=== PATIENT | female | born 1980 | race Caucasian/White ===

== ENCOUNTER 2024-06-10 10:28 | Emergency (ER) | payer BC, SELFPAY ==
[2024-06-10 10:30] VITALS: BP 127/95
--- NOTE | 2024-06-10 11:00 | ED.GENMED ---
History of Present Illness
General
Chief Complaint: Abdominal Symptoms
Source: patient
Exam Limitations: none
Time Seen by Provider: 06/10/24 10:48
History of Present Illness
History of Present Illness:
44-year-old female presents with 2 days worth of copious amounts of diarrhea. She notes liquid type stool at least every hour. She notes a bloating type discomfort and crampy type pain but no persistent pain that is localized. She denies fevers
but notes exhaustion and fatigue. No blood in the stool. No urinary symptoms. No known sick contacts. No other complaints at this time. No recent antibiotics
Phy Exam
Physical Exam
Physical Exam:
General: Well-appearing female no acute respiratory distress
HEENT: Normocephalic atraumatic mucosa dry
Heart tachycardic but regular
Lungs: Clear no wheeze
Abdomen is soft hyperactive bowel sounds nontender nondistended
Extremities: No cyanosis
Skin: Warm no rash
Course
Orders/Labs/Results
Orders:
Orders
06/10/24 10:59
0.9% Sodium Chloride 1000 ml [Nss] 1,000 ml IV BOLUS
06/10/24 11:11
Complete Blood Count/With Diff Urgent
Comprehensive Metabolic Panel Urgent
HCG, Serum Qualitative Screen Urgent
Comment: ADD ON
06/10/24 11:27
Add On- LAB Urgent
Tests Added?: qualitative hcg
06/10/24 12:17
Urinalysis Reflex To Culture Urgent
Date Specimen was Collected: 06/10/24
Time Specimen was Collected: 12:15
Urine Microscopic Reflex Cult Urgent
Norovirus by PCR Urgent
IRAIDA Source: Feces/Stool
Specimen Description:
Date Specimen was Collected: 06/10/24
Time Specimen was Collected: 12:15
STOOL [C difficile Antigen & Toxins] Urgent
IRAIDA Source: Feces/Stool
Specimen Description:
Date Specimen was Collected: 06/10/24
Time Specimen was Collected: 12:15
Stool Culture Urgent
IRAIDA Source: Feces/Stool
Specimen Description:
Date Specimen was Collected: 06/10/24
Time Specimen was Collected: 12:15
Urine Culture Urgent
IRAIDA Source: U
Specimen Description:
Date Specimen was Collected: 06/10/24
Time Specimen was Collected: 12:15
Abnormal Lab Results
06/10/24 06/10/24
11:11 12:17
WBC 14.7 H 10^3/uL
(4.8-10.8)
RBC 5.41 H 10^6/uL
(4.20-5.40)
Hct 47.1 H %
(37.0-47.0)
Abs Immat Gran (auto) 0.1 H 10^3/uL
(0-0.05)
Absolute Neuts (auto) 11.1 H 10^3/uL
(1.4-6.5)
Absolute Monos (auto) 0.8 H 10^3/uL
(0.1-0.6)
Neutrophils % 75.7 H %
(42.2-75.2)
Lymphocytes % 16.8 L %
(20.5-51.1)
Carbon Dioxide 21 L mmol/L
(22-30)
Calcium 10.3 H mg/dl
(8.4-10.2)
Urine Ketones 1+ A
(Negative)
Ur Occult Blood Reflex 2+ A
(Negative)
Leukocyte Esterase Rfl 1+ A
(Negative)
Urine Bacteria (Reflex) Few A
(Negative)
Urine Albumin (Reflex) 2+ A
(Neg - Trace)
06/10/24 11:11
06/10/24 11:11
Vital Signs
Initial and Last Documented VS:
Initial Vital Signs
Temp Pulse Resp BP Pulse Ox
97.7 F 118 22 127/95 97
06/10/24 10:30 06/10/24 10:30 06/10/24 10:30 06/10/24 10:30 06/10/24 10:30
Last Documented Vital Signs
Temp Pulse Resp BP Pulse Ox
97.7 F 88 16 118/83 100
06/10/24 10:30 06/10/24 13:45 06/10/24 13:45 06/10/24 13:45 06/10/24 13:45
MDM/Problems Addressed
Differential Diagnosis Includes:
Diarrhea for 2 days. She is tachycardic at triage. Concern for electrolyte abnormality versus volume depletion. Will order stool studies to evaluate for norovirus or C. difficile and order stool cultures. Check labs hydrate.
Considered CT or imaging of abdomen however given benign exam we will hold off for now
*Critical Care Note
Total Time (30-74mins, 75-104mins- exclusive of procedures): Not Applicable
Update Note
Update Note:
Patient feeling improved after hydration. Labs reviewed no significant metabolic abnormality. White blood cell count is slightly elevated I suspect this is related to the viral illness she has. She was able to provide a stool sample which is
pending. Will recommend clear liquids brat diet will prescribe Bentyl for spasm. Stable for discharge
ED Attending Note
-
Portions of this chart may have been created with voice recognition software.� Occasional wrong word or��sound alike� substitutions may have occurred due to the inherent limitations of voice recognition software.
Discharge Plan
Departure
Patient Disposition: Home (Routine Discharge)
Date of Disposition: 06/10/24
Time of Disposition: 13:55
Patient with high blood pressure during this ER visit?: No
Discharge Problem:
Diarrhea
Instructions: Diarrhea in teens and adults
Prescriptions:
New
dicyclomine 10 mg capsule
10 mg PO QID PRN (Reason: spasm) Qty: 10 0RF
ondansetron 4 mg tablet,disintegrating
4 mg PO TID PRN (Reason: nausea and vomiting) Qty: 10 0RF
No Action
vit-iron fum-folic ac 1 EACH tablet
1 mg PO DAILY
oxycodone-acetaminophen 5 MG/325 MG tablet
1 tab PO Q4HPRN PRN (Reason: moderate pain) Qty: 30 0RF
ibuprofen 600 MG tablet
600 mg PO Q6HPRN PRN (Reason: moderate pain/cramps) Qty: 0 0RF
docusate sodium 100 MG capsule
100 mg PO BID Qty: 0 0RF
Referrals:
Devin Graham MD [Family Provider] -
Activity Restrictions/Additional Instructions:
Drink plenty clear liquids. Use Zofran if needed for nausea and Bentyl as needed for abdominal spasm. Advance to a bland diet as tolerated. Return if worse. You should receive a call if any of your stool studies are positive
Interventions
Interventions:
*Risk Screen - Suicide Last Done: 06/10/24 10:30
*General Assessment Last Done: 06/10/24 10:30
*Neglect/Abuse Screening Last Done: 06/10/24 10:30
*ED- Fall Risk Assessment Last Done: 06/10/24 11:02
*ED COVID-19 Vaccine History Last Done: 06/10/24 11:02
TB-Wmgexo-Hgmrnuknzs Assessment Last Done: 06/10/24 11:02
Discharge Date and Time
Print Language: YI
[2024-06-10] MEDS: NSS 1000 IV (11:12)
[2024-06-10 11:23] LABS: % Basophils 0.4 % (0-2); % Eosinophils 0.9 % (0-6); % Immature Granulocytes 0.5 % (0-0.5); % Lymphocytes 16.8 % (20.5-51.1); % Monocytes 5.7 % (1.7-9.3); % Neutrophils 75.7 % (42.2-75.2); Absolute Basophils 0.1 10^3/uL (0-0.2); Absolute Eosinophils 0.1 10^3/uL (0-0.7); Absolute Immature Granulocytes 0.1 10^3/uL (0-0.05); Absolute Lymphocytes 2.5 10^3/uL (1.2-3.4); Absolute Monocytes 0.8 10^3/uL (0.1-0.6); Absolute Neutrophils 11.1 10^3/uL (1.4-6.5); Hematocrit 47.1 % (37.0-47.0); Hemoglobin 15.7 g/dL (12.0-16.0); Mean Corp Hgb Conc. 33.3 g/dL (33.0-37.0); Mean Corpuscular Volume 87.1 fL (81.0-99.0); Nucleated Red Blood Cells % 0 %; Platelet Count 364 10^3/uL (130-400); Red Blood Cell Count 5.41 10^6/uL (4.20-5.40); Red Cell Dist. Width 13.5 % (11.5-14.5); White Blood Cell Count 14.7 10^3/uL (4.8-10.8)
[2024-06-10 11:31] LABS: ALT (SGPT) 27 U/L (0-35); AST (SGOT) 18 U/L (14-36); Albumin 4.6 g/dl (3.5-5.0); Alkaline Phosphatase 61 U/L (38-126); Blood Urea Nitrogen 14 mg/dl (7-17); Calcium 10.3 mg/dl (8.4-10.2); Carbon Dioxide 21 mmol/L (22-30); Chloride 106 mmol/L (98-107); Glucose 92 mg/dl (70-99); Potassium 4.7 mmol/L (3.5-5.1); Sodium 139 mmol/L (135-145); Total Bilirubin 0.7 mg/dl (0.2-1.3); Total Protein 7.4 g/dl (6.3-8.2); eGFR > 60.00
[2024-06-10 11:56] LABS: HCG, Serum Qualitative Screen Negative
[2024-06-10 12:37] LABS: Urine Albumin 2+ (Neg - Trace); Urine Bilirubin Negative (Negative); Urine Character Clear (Clear); Urine Color Yellow; Urine Glucose Negative (Negative); Urine Ketone 1+ (Negative); Urine Leukocyte 1+ (Negative); Urine Nitrite Negative (Negative); Urine Occult Blood 2+ (Negative); Urine Specific Gravity 1.025 (<1.030); Urine Urobilinogen Negative (Neg - 1+)
[2024-06-10 13:22] LABS: Urine Bacteria Few (Negative); Urine Hyaline Cast >15 /LPF (0-2); Urine Red Blood Cell 0-2 /HPF (0-2); Urine White Cell 0-2 /HPF (0-5)
[2024-06-10 13:45] VITALS: BP 118/83
== END 2024-06-10 14:23 | disposition home or self-care (01) ==
LOC: EMR 10:28
PROVIDERS: Physician Assistant; EMERGENCY PHYSICIAN Emergency Medicine; FAMILY PHYSICIAN Family Medicine
DX: R19.7 Diarrhea, unspecified (principal)
CPT/HCPCS: 99282; 96360; 80053; 81003; 81015; 84703; 85025; 87045; 87046; 87086; 87324; 87427; 87449; 87798

== ENCOUNTER → 2024-06-21 11:36 | Outpatient (REF) | payer BC, SELFPAY | LOC: HWWDC 11:36 | PROVIDERS: ATTENDING PHYSICIAN Student in an Organized Health Care Education/Training Program; FAMILY PHYSICIAN Family Medicine | DX: Z12.31 Encounter for screening mammogram for malignant neoplasm of breast (principal) | CPT/HCPCS: 77063; 77067 ==